=== PATIENT | male | born 1950 | race Caucasian/White ===

== ENCOUNTER 2023-05-01 08:11 | Inpatient (IN) | payer OTHER, MEDICARE ==
[2023-05-01] MEDS ORDERED: Bisacodyl 10 MG Supp RECTAL PRN (12:19)
[2023-05-01] MEDS ORDERED: 50% Dextrose in Water 50 ML Syringe IVPUSH PRN (12:25)
[2023-05-01] MEDS ORDERED: Glucagon,Human Recombinant 1 MG Vial IM PRN (12:25)
[2023-05-01] MEDS ORDERED: Lactulose Soln 10 GM/15 ML 30 ML UD Cup PO PRN (12:28)
[2023-05-01] MEDS ORDERED: hydrOXYzine HCl 25 MG Tab PO PRN (12:31)
[2023-05-01] MEDS: Insulin Lispro 100 Unit/ML 3 ML KwikPen SUBCUT SCH ×4 (13:16→18:00)
[2023-05-01] MEDS: Acetaminophen 500 MG Tab PO SCH ×3 (13:20→21:00)
[2023-05-01] MEDS: tiZANidine 4 MG Tab PO SCH ×2 (13:21→21:04)
[2023-05-01] MEDS: Gabapentin 300 MG Cap PO SCH ×2 (13:21→20:59)
[2023-05-01] MEDS ORDERED: Insulin Glargine,Human Rec. Analog 100 Units/ML 3 ML Pen SUBCUT SCH (15:00)
[2023-05-01] MEDS: Insulin Glargine,Human Rec. Analog 100 Units/ML 3 ML Pen SUBCUT SCH (15:41)
[2023-05-01] MEDS: Bacitracin Oint 28.35 GM Tube TOP SCH ×2 (18:41→21:16)
[2023-05-01] MEDS: Melatonin 3 MG Tab PO SCH (20:58)
[2023-05-01] MEDS: Metoprolol Tartrate 50 MG Tab PO SCH (20:58)
[2023-05-01] MEDS: Rosuvastatin 5 MG Tab PO SCH (20:58)
[2023-05-01] MEDS: Sennosides/Docusate Sodium 50-8.6 MG Tab PO SCH (20:59)
[2023-05-01] MEDS ORDERED: Non-Formulary Medication 1 Each (Fish Oil/Omega-3 Fatty Acids [Fish Oil 1,000 Mg] 1 GM Cap PO SCH (21:00)
[2023-05-01] MEDS: traZODone 50 MG Tab PO SCH (21:00)
[2023-05-01] MEDS: Diclofenac Sodium 1% Gel 100 GM Tube TOP SCH (21:03)
[2023-05-02] MEDS: oxyCODONE 5 MG Tab PO PRN ×2 (02:57→08:34)
[2023-05-02] MEDS ORDERED: Bisacodyl 10 MG Supp RECTAL ONE (07:41)
[2023-05-02] MEDS: Insulin Lispro 100 Unit/ML 3 ML KwikPen SUBCUT SCH ×6 (07:49→17:52)
[2023-05-02] MEDS ORDERED: Insulin Lispro 100 Unit/ML 3 ML KwikPen SUBCUT ONE (08:02)
[2023-05-02] MEDS: Lidocaine 4% 1 each Patch TOP SCH (09:26)
[2023-05-02] MEDS: Metoprolol Tartrate 50 MG Tab PO SCH ×2 (09:28→20:40)
[2023-05-02] MEDS: Enoxaparin 40 MG/0.4 ML Syringe SUBCUT SCH (09:29)
[2023-05-02] MEDS: Gabapentin 300 MG Cap PO SCH ×3 (09:30→20:41)
[2023-05-02] MEDS: Sennosides/Docusate Sodium 50-8.6 MG Tab PO SCH ×2 (09:30→20:42)
[2023-05-02] MEDS: Acetaminophen 500 MG Tab PO SCH ×4 (09:31→20:38)
[2023-05-02] MEDS: Cholecalciferol (Vitamin D3) 25 MCG Tab PO SCH (09:33)
[2023-05-02] MEDS: tiZANidine 4 MG Tab PO SCH ×3 (09:34→20:39)
[2023-05-02] MEDS: Diclofenac Sodium 1% Gel 100 GM Tube TOP SCH ×2 (09:34→20:42)
[2023-05-02] MEDS ORDERED: Insulin Glargine,Human Rec. Analog 100 Units/ML 3 ML Pen SUBCUT ONE (12:18)
[2023-05-02] MEDS: Polyethylene Glycol 3350 Powder 17 GM Packet PO SCH (14:40)
[2023-05-02] MEDS: BACITRACIN TOP SCH ×2 (15:11→20:39)
[2023-05-02] MEDS: Insulin Glargine,Human Rec. Analog 100 Units/ML 3 ML Pen SUBCUT SCH (15:12)
[2023-05-02] MEDS: Melatonin 3 MG Tab PO SCH (20:40)
[2023-05-02] MEDS: Rosuvastatin 5 MG Tab PO SCH (20:41)
[2023-05-02] MEDS: traZODone 50 MG Tab PO SCH (20:42)
[2023-05-03] MEDS: oxyCODONE 5 MG Tab PO PRN ×2 (05:17→08:50)
[2023-05-03] MEDS: Insulin Lispro 100 Unit/ML 3 ML KwikPen SUBCUT SCH ×6 (07:54→17:50)
[2023-05-03] MEDS: Lidocaine 4% 1 each Patch TOP SCH (08:37)
[2023-05-03] MEDS: BACITRACIN TOP SCH ×2 (08:38→21:04)
[2023-05-03] MEDS: Enoxaparin 40 MG/0.4 ML Syringe SUBCUT SCH (08:39)
[2023-05-03] MEDS: Metoprolol Tartrate 50 MG Tab PO SCH ×2 (08:39→21:02)
[2023-05-03] MEDS: Sennosides/Docusate Sodium 50-8.6 MG Tab PO SCH ×2 (08:40→21:03)
[2023-05-03] MEDS: Polyethylene Glycol 3350 Powder 17 GM Packet PO SCH (08:40)
[2023-05-03] MEDS: Acetaminophen 500 MG Tab PO SCH ×4 (08:40→21:03)
[2023-05-03] MEDS: Cholecalciferol (Vitamin D3) 25 MCG Tab PO SCH (08:41)
[2023-05-03] MEDS: tiZANidine 4 MG Tab PO SCH ×3 (08:42→21:02)
[2023-05-03] MEDS: Diclofenac Sodium 1% Gel 100 GM Tube TOP SCH ×2 (08:42→21:03)
[2023-05-03] MEDS: Gabapentin 300 MG Cap PO SCH ×3 (08:50→21:03)
[2023-05-03] MEDS: Insulin Glargine,Human Rec. Analog 100 Units/ML 3 ML Pen SUBCUT SCH (14:36)
[2023-05-03] MEDS: traZODone 50 MG Tab PO SCH (21:02)
[2023-05-03] MEDS: Melatonin 3 MG Tab PO SCH (21:02)
[2023-05-03] MEDS: Rosuvastatin 5 MG Tab PO SCH (21:03)
[2023-05-04] MEDS: oxyCODONE 5 MG Tab PO PRN ×2 (05:54→09:59)
[2023-05-04] MEDS: Insulin Lispro 100 Unit/ML 3 ML KwikPen SUBCUT SCH ×6 (08:57→18:16)
[2023-05-04] MEDS: BACITRACIN TOP SCH ×2 (09:47→20:26)
[2023-05-04] MEDS: Lidocaine 4% 1 each Patch TOP SCH (09:47)
[2023-05-04] MEDS: Cholecalciferol (Vitamin D3) 25 MCG Tab PO SCH (09:49)
[2023-05-04] MEDS: Acetaminophen 500 MG Tab PO SCH ×4 (09:50→20:23)
[2023-05-04] MEDS: Diclofenac Sodium 1% Gel 100 GM Tube TOP SCH ×2 (09:51→20:25)
[2023-05-04] MEDS: Sennosides/Docusate Sodium 50-8.6 MG Tab PO SCH ×2 (09:51→20:24)
[2023-05-04] MEDS: Enoxaparin 40 MG/0.4 ML Syringe SUBCUT SCH (09:51)
[2023-05-04] MEDS: Polyethylene Glycol 3350 Powder 17 GM Packet PO SCH (09:51)
[2023-05-04] MEDS: tiZANidine 4 MG Tab PO SCH ×3 (09:52→20:25)
[2023-05-04] MEDS: Gabapentin 300 MG Cap PO SCH ×3 (09:54→20:22)
[2023-05-04] MEDS: Metoprolol Tartrate 50 MG Tab PO SCH ×2 (09:54→20:28)
[2023-05-04] MEDS: Lactulose Soln 10 GM/15 ML 15 ML UD Cup PO PRN (14:39)
[2023-05-04] MEDS: Insulin Glargine,Human Rec. Analog 100 Units/ML 3 ML Pen SUBCUT SCH (15:40)
[2023-05-04] MEDS: Melatonin 3 MG Tab PO SCH (20:22)
[2023-05-04] MEDS: traZODone 50 MG Tab PO SCH (20:24)
[2023-05-04] MEDS: Rosuvastatin 5 MG Tab PO SCH (20:24)
[2023-05-05] MEDS: oxyCODONE 5 MG Tab PO PRN (06:29)
[2023-05-05] MEDS: Insulin Lispro 100 Unit/ML 3 ML KwikPen SUBCUT SCH ×6 (08:57→17:53)
[2023-05-05] MEDS: BACITRACIN TOP SCH ×2 (08:58→20:56)
[2023-05-05] MEDS: Lidocaine 4% 1 each Patch TOP SCH (08:58)
[2023-05-05] MEDS: Enoxaparin 40 MG/0.4 ML Syringe SUBCUT SCH (08:59)
[2023-05-05] MEDS: Acetaminophen 500 MG Tab PO SCH ×4 (08:59→20:52)
[2023-05-05] MEDS: tiZANidine 4 MG Tab PO SCH ×3 (08:59→20:59)
[2023-05-05] MEDS: Cholecalciferol (Vitamin D3) 25 MCG Tab PO SCH (08:59)
[2023-05-05] MEDS: Sennosides/Docusate Sodium 50-8.6 MG Tab PO SCH ×2 (08:59→20:58)
[2023-05-05] MEDS: Polyethylene Glycol 3350 Powder 17 GM Packet PO SCH (09:00)
[2023-05-05] MEDS: Diclofenac Sodium 1% Gel 100 GM Tube TOP SCH ×2 (09:00→20:54)
[2023-05-05] MEDS: Metoprolol Tartrate 50 MG Tab PO SCH ×2 (09:03→20:57)
[2023-05-05] MEDS: Gabapentin 300 MG Cap PO SCH ×3 (09:03→20:57)
[2023-05-05] MEDS: Insulin Glargine,Human Rec. Analog 100 Units/ML 3 ML Pen SUBCUT SCH (15:13)
[2023-05-05] MEDS: traZODone 50 MG Tab PO SCH (20:57)
[2023-05-05] MEDS: Rosuvastatin 5 MG Tab PO SCH (20:58)
[2023-05-05] MEDS: Melatonin 3 MG Tab PO SCH (20:59)
[2023-05-05] MEDS ORDERED: Bisacodyl 10 MG Supp RECTAL PRN (21:45)
[2023-05-06] MEDS: oxyCODONE 5 MG Tab PO PRN ×3 (00:31→11:46)
[2023-05-06] MEDS: Polyethylene Glycol 3350 Powder 17 GM Packet PO SCH (08:06)
[2023-05-06] MEDS: Lidocaine 4% 1 each Patch TOP SCH (08:06)
[2023-05-06] MEDS: BACITRACIN TOP SCH ×2 (08:06→20:39)
[2023-05-06] MEDS: Sennosides/Docusate Sodium 50-8.6 MG Tab PO SCH ×2 (08:07→21:29)
[2023-05-06] MEDS: Diclofenac Sodium 1% Gel 100 GM Tube TOP SCH ×2 (08:07→20:39)
[2023-05-06] MEDS: Cholecalciferol (Vitamin D3) 25 MCG Tab PO SCH (08:07)
[2023-05-06] MEDS: Enoxaparin 40 MG/0.4 ML Syringe SUBCUT SCH (08:09)
[2023-05-06] MEDS: Insulin Lispro 100 Unit/ML 3 ML KwikPen SUBCUT SCH ×6 (08:09→17:56)
[2023-05-06] MEDS: Gabapentin 300 MG Cap PO SCH ×3 (08:09→20:37)
[2023-05-06] MEDS: Metoprolol Tartrate 50 MG Tab PO SCH ×2 (08:10→21:29)
[2023-05-06] MEDS: tiZANidine 4 MG Tab PO SCH ×3 (08:10→20:37)
[2023-05-06] MEDS: Acetaminophen 500 MG Tab PO SCH ×4 (08:11→20:37)
[2023-05-06] MEDS: Insulin Glargine,Human Rec. Analog 100 Units/ML 3 ML Pen SUBCUT SCH (14:56)
[2023-05-06] MEDS: Rosuvastatin 5 MG Tab PO SCH (20:36)
[2023-05-06] MEDS: traZODone 50 MG Tab PO SCH (20:37)
[2023-05-06] MEDS: Melatonin 3 MG Tab PO SCH (20:37)
[2023-05-07] MEDS: oxyCODONE 5 MG Tab PO PRN ×3 (00:59→14:44)
[2023-05-07] MEDS: BACITRACIN TOP SCH ×2 (01:00→19:59)
[2023-05-07] MEDS: Metoprolol Tartrate 50 MG Tab PO SCH ×2 (08:25→20:00)
[2023-05-07] MEDS: tiZANidine 4 MG Tab PO SCH ×3 (08:25→20:00)
[2023-05-07] MEDS: Sennosides/Docusate Sodium 50-8.6 MG Tab PO SCH ×2 (08:26→20:01)
[2023-05-07] MEDS: Acetaminophen 500 MG Tab PO SCH ×4 (08:26→20:01)
[2023-05-07] MEDS: Cholecalciferol (Vitamin D3) 25 MCG Tab PO SCH (08:26)
[2023-05-07] MEDS: Enoxaparin 40 MG/0.4 ML Syringe SUBCUT SCH (08:30)
[2023-05-07] MEDS: Polyethylene Glycol 3350 Powder 17 GM Packet PO SCH (08:30)
[2023-05-07] MEDS: Insulin Lispro 100 Unit/ML 3 ML KwikPen SUBCUT SCH ×6 (08:33→18:42)
[2023-05-07] MEDS: Gabapentin 300 MG Cap PO SCH ×3 (08:41→20:12)
[2023-05-07] MEDS: Diclofenac Sodium 1% Gel 100 GM Tube TOP SCH ×2 (08:43→20:05)
[2023-05-07] MEDS: Lidocaine 4% 1 each Patch TOP SCH (08:45)
[2023-05-07] MEDS ORDERED: Insulin Glargine,Human Rec. Analog 100 Units/ML 3 ML Pen SUBCUT ONE (12:18)
[2023-05-07] MEDS ORDERED: Insulin Lispro 100 Unit/ML 3 ML KwikPen SUBCUT ONE (12:18)
[2023-05-07] MEDS: Insulin Glargine,Human Rec. Analog 100 Units/ML 3 ML Pen SUBCUT SCH (14:39)
[2023-05-07] MEDS: Lactulose Soln 10 GM/15 ML 15 ML UD Cup PO PRN (18:52)
[2023-05-07] MEDS: Rosuvastatin 5 MG Tab PO SCH (20:00)
[2023-05-07] MEDS: Melatonin 3 MG Tab PO SCH (20:00)
[2023-05-07] MEDS: traZODone 50 MG Tab PO SCH (20:04)
[2023-05-08] MEDS: oxyCODONE 5 MG Tab PO PRN ×3 (01:43→16:59)
[2023-05-08] MEDS: Lidocaine 4% 1 each Patch TOP SCH (08:18)
[2023-05-08] MEDS: BACITRACIN TOP SCH ×2 (08:20→21:12)
[2023-05-08] MEDS: tiZANidine 4 MG Tab PO SCH ×3 (08:21→21:10)
[2023-05-08] MEDS: Metoprolol Tartrate 50 MG Tab PO SCH ×2 (08:21→21:07)
[2023-05-08] MEDS: Sennosides/Docusate Sodium 50-8.6 MG Tab PO SCH ×2 (08:22→21:08)
[2023-05-08] MEDS: Acetaminophen 500 MG Tab PO SCH ×4 (08:23→21:08)
[2023-05-08] MEDS: Cholecalciferol (Vitamin D3) 25 MCG Tab PO SCH (08:23)
[2023-05-08] MEDS: Diclofenac Sodium 1% Gel 100 GM Tube TOP SCH ×2 (08:24→21:13)
[2023-05-08] MEDS: Polyethylene Glycol 3350 Powder 17 GM Packet PO SCH (08:25)
[2023-05-08] MEDS: Enoxaparin 40 MG/0.4 ML Syringe SUBCUT SCH (08:25)
[2023-05-08] MEDS: Insulin Lispro 100 Unit/ML 3 ML KwikPen SUBCUT SCH ×6 (08:28→18:58)
[2023-05-08] MEDS: Lactulose Soln 10 GM/15 ML 15 ML UD Cup PO PRN (08:31)
[2023-05-08] MEDS: Gabapentin 300 MG Cap PO SCH ×3 (08:31→21:07)
[2023-05-08] MEDS: Insulin Glargine,Human Rec. Analog 100 Units/ML 3 ML Pen SUBCUT SCH (14:40)
[2023-05-08] MEDS: traZODone 50 MG Tab PO SCH (21:07)
[2023-05-08] MEDS: Rosuvastatin 5 MG Tab PO SCH (21:09)
[2023-05-08] MEDS: Melatonin 3 MG Tab PO SCH (21:09)
[2023-05-09] MEDS: oxyCODONE 5 MG Tab PO PRN (05:35)
[2023-05-09] MEDS: Insulin Lispro 100 Unit/ML 3 ML KwikPen SUBCUT SCH ×6 (08:18→18:09)
[2023-05-09] MEDS: Lidocaine 4% 1 each Patch TOP SCH (08:19)
[2023-05-09] MEDS: Gabapentin 300 MG Cap PO SCH ×3 (08:19→21:16)
[2023-05-09] MEDS: BACITRACIN TOP SCH ×2 (08:20→21:14)
[2023-05-09] MEDS: Polyethylene Glycol 3350 Powder 17 GM Packet PO SCH (08:20)
[2023-05-09] MEDS: Sennosides/Docusate Sodium 50-8.6 MG Tab PO SCH ×2 (08:21→21:17)
[2023-05-09] MEDS: Acetaminophen 500 MG Tab PO SCH ×4 (08:21→21:17)
[2023-05-09] MEDS: Enoxaparin 40 MG/0.4 ML Syringe SUBCUT SCH (08:21)
[2023-05-09] MEDS: Diclofenac Sodium 1% Gel 100 GM Tube TOP SCH ×2 (08:22→21:19)
[2023-05-09] MEDS: Cholecalciferol (Vitamin D3) 25 MCG Tab PO SCH (08:22)
[2023-05-09] MEDS: tiZANidine 4 MG Tab PO SCH ×3 (08:22→21:19)
[2023-05-09] MEDS: Metoprolol Tartrate 50 MG Tab PO SCH ×2 (08:25→21:15)
[2023-05-09] MEDS: Insulin Glargine,Human Rec. Analog 100 Units/ML 3 ML Pen SUBCUT SCH (15:05)
[2023-05-09] MEDS: Rosuvastatin 5 MG Tab PO SCH (21:16)
[2023-05-09] MEDS: Melatonin 3 MG Tab PO SCH (21:16)
[2023-05-09] MEDS: traZODone 50 MG Tab PO SCH (21:17)
[2023-05-10] MEDS: Lactulose Soln 10 GM/15 ML 15 ML UD Cup PO PRN (04:59)
[2023-05-10] MEDS: oxyCODONE 5 MG Tab PO PRN ×3 (04:59→17:49)
[2023-05-10] MEDS: Polyethylene Glycol 3350 Powder 17 GM Packet PO SCH (09:37)
[2023-05-10] MEDS: tiZANidine 4 MG Tab PO SCH ×3 (09:39→20:51)
[2023-05-10] MEDS: Metoprolol Tartrate 50 MG Tab PO SCH ×2 (09:39→21:17)
[2023-05-10] MEDS: Cholecalciferol (Vitamin D3) 25 MCG Tab PO SCH (09:39)
[2023-05-10] MEDS: Sennosides/Docusate Sodium 50-8.6 MG Tab PO SCH ×2 (09:39→20:49)
[2023-05-10] MEDS: Enoxaparin 40 MG/0.4 ML Syringe SUBCUT SCH (09:40)
[2023-05-10] MEDS: Lidocaine 4% 1 each Patch TOP SCH (09:41)
[2023-05-10] MEDS: Insulin Lispro 100 Unit/ML 3 ML KwikPen SUBCUT SCH ×6 (09:43→18:02)
[2023-05-10] MEDS: Gabapentin 300 MG Cap PO SCH ×3 (09:48→20:48)
[2023-05-10] MEDS: Acetaminophen 500 MG Tab PO SCH ×4 (09:50→20:49)
[2023-05-10] MEDS: BACITRACIN TOP SCH ×2 (09:51→20:46)
[2023-05-10] MEDS: Diclofenac Sodium 1% Gel 100 GM Tube TOP SCH ×2 (09:52→20:51)
[2023-05-10] MEDS: Insulin Glargine,Human Rec. Analog 100 Units/ML 3 ML Pen SUBCUT SCH (15:00)
[2023-05-10] MEDS: Melatonin 3 MG Tab PO SCH (20:49)
[2023-05-10] MEDS: traZODone 50 MG Tab PO SCH (20:49)
[2023-05-10] MEDS: Rosuvastatin 5 MG Tab PO SCH (20:49)
[2023-05-11] MEDS: oxyCODONE 5 MG Tab PO PRN ×4 (00:04→21:14)
[2023-05-11] MEDS: Insulin Lispro 100 Unit/ML 3 ML KwikPen SUBCUT SCH ×6 (09:01→17:50)
[2023-05-11] MEDS: Cholecalciferol (Vitamin D3) 25 MCG Tab PO SCH (09:10)
[2023-05-11] MEDS: Sennosides/Docusate Sodium 50-8.6 MG Tab PO SCH ×2 (09:10→21:10)
[2023-05-11] MEDS: tiZANidine 4 MG Tab PO SCH ×3 (09:10→21:13)
[2023-05-11] MEDS: Metoprolol Tartrate 50 MG Tab PO SCH ×2 (09:12→21:08)
[2023-05-11] MEDS: Acetaminophen 500 MG Tab PO SCH ×4 (09:12→21:10)
[2023-05-11] MEDS: Polyethylene Glycol 3350 Powder 17 GM Packet PO SCH (09:13)
[2023-05-11] MEDS: BACITRACIN TOP SCH ×2 (09:13→21:08)
[2023-05-11] MEDS: Lidocaine 4% 1 each Patch TOP SCH (09:14)
[2023-05-11] MEDS: Diclofenac Sodium 1% Gel 100 GM Tube TOP SCH ×2 (09:14→21:13)
[2023-05-11] MEDS: Enoxaparin 40 MG/0.4 ML Syringe SUBCUT SCH (09:22)
[2023-05-11] MEDS: Gabapentin 300 MG Cap PO SCH ×3 (09:22→21:09)
[2023-05-11] MEDS: Insulin Glargine,Human Rec. Analog 100 Units/ML 3 ML Pen SUBCUT SCH (15:38)
[2023-05-11] MEDS: Rosuvastatin 5 MG Tab PO SCH (21:08)
[2023-05-11] MEDS: Melatonin 3 MG Tab PO SCH (21:09)
[2023-05-11] MEDS: traZODone 50 MG Tab PO SCH (21:10)
[2023-05-12] MEDS: oxyCODONE 5 MG Tab PO PRN ×3 (03:22→21:20)
[2023-05-12] MEDS: Insulin Lispro 100 Unit/ML 3 ML KwikPen SUBCUT SCH ×6 (07:53→17:54)
[2023-05-12] MEDS: BACITRACIN TOP SCH ×2 (09:31→21:24)
[2023-05-12] MEDS: Diclofenac Sodium 1% Gel 100 GM Tube TOP SCH ×2 (09:32→21:21)
[2023-05-12] MEDS: Enoxaparin 40 MG/0.4 ML Syringe SUBCUT SCH (09:43)
[2023-05-12] MEDS: Lidocaine 4% 1 each Patch TOP SCH (09:43)
[2023-05-12] MEDS: Metoprolol Tartrate 50 MG Tab PO SCH ×2 (09:44→21:24)
[2023-05-12] MEDS: Sennosides/Docusate Sodium 50-8.6 MG Tab PO SCH ×2 (09:44→21:23)
[2023-05-12] MEDS: Polyethylene Glycol 3350 Powder 17 GM Packet PO SCH (09:44)
[2023-05-12] MEDS: Cholecalciferol (Vitamin D3) 25 MCG Tab PO SCH (09:45)
[2023-05-12] MEDS: Acetaminophen 500 MG Tab PO SCH ×4 (09:45→21:22)
[2023-05-12] MEDS: Gabapentin 300 MG Cap PO SCH ×3 (09:53→21:19)
[2023-05-12] MEDS: tiZANidine 4 MG Tab PO SCH ×3 (09:54→22:03)
[2023-05-12] MEDS: Insulin Glargine,Human Rec. Analog 100 Units/ML 3 ML Pen SUBCUT SCH (15:22)
[2023-05-12] MEDS: traZODone 50 MG Tab PO SCH (21:23)
[2023-05-12] MEDS: Rosuvastatin 5 MG Tab PO SCH (21:24)
[2023-05-12] MEDS: Melatonin 3 MG Tab PO SCH (21:25)
[2023-05-13] MEDS: oxyCODONE 5 MG Tab PO PRN ×2 (05:17→20:43)
[2023-05-13] MEDS: Insulin Lispro 100 Unit/ML 3 ML KwikPen SUBCUT SCH ×6 (06:37→17:57)
[2023-05-13] MEDS: Lidocaine 4% 1 each Patch TOP SCH (09:46)
[2023-05-13] MEDS: BACITRACIN TOP SCH ×2 (09:46→20:50)
[2023-05-13] MEDS: Enoxaparin 40 MG/0.4 ML Syringe SUBCUT SCH (09:48)
[2023-05-13] MEDS: Polyethylene Glycol 3350 Powder 17 GM Packet PO SCH (09:48)
[2023-05-13] MEDS: Sennosides/Docusate Sodium 50-8.6 MG Tab PO SCH ×2 (09:48→20:55)
[2023-05-13] MEDS: Metoprolol Tartrate 50 MG Tab PO SCH ×2 (09:48→20:52)
[2023-05-13] MEDS: Acetaminophen 500 MG Tab PO SCH ×4 (09:49→20:55)
[2023-05-13] MEDS: Gabapentin 300 MG Cap PO SCH ×3 (09:49→20:53)
[2023-05-13] MEDS: Cholecalciferol (Vitamin D3) 25 MCG Tab PO SCH (09:50)
[2023-05-13] MEDS: Diclofenac Sodium 1% Gel 100 GM Tube TOP SCH ×2 (09:51→20:56)
[2023-05-13] MEDS: tiZANidine 4 MG Tab PO SCH ×3 (09:51→20:57)
[2023-05-13] MEDS: Insulin Glargine,Human Rec. Analog 100 Units/ML 3 ML Pen SUBCUT SCH (16:43)
[2023-05-13] MEDS ORDERED: Insulin Glargine,Human Rec. Analog 100 Units/ML 3 ML Pen SUBCUT ONE (16:45)
[2023-05-13] MEDS: Rosuvastatin 5 MG Tab PO SCH (20:52)
[2023-05-13] MEDS: Melatonin 3 MG Tab PO SCH (20:53)
[2023-05-13] MEDS: traZODone 50 MG Tab PO SCH (20:55)
[2023-05-14] MEDS: oxyCODONE 5 MG Tab PO PRN ×4 (03:31→21:41)
[2023-05-14] MEDS: Insulin Lispro 100 Unit/ML 3 ML KwikPen SUBCUT SCH ×6 (06:57→17:49)
[2023-05-14] MEDS: Acetaminophen 500 MG Tab PO SCH ×4 (08:02→21:24)
[2023-05-14] MEDS: Metoprolol Tartrate 50 MG Tab PO SCH ×2 (08:02→21:31)
[2023-05-14] MEDS: Diclofenac Sodium 1% Gel 100 GM Tube TOP SCH (08:03)
[2023-05-14] MEDS: Sennosides/Docusate Sodium 50-8.6 MG Tab PO SCH ×2 (08:04→21:24)
[2023-05-14] MEDS: Cholecalciferol (Vitamin D3) 25 MCG Tab PO SCH (08:04)
[2023-05-14] MEDS: tiZANidine 4 MG Tab PO SCH ×3 (08:04→21:29)
[2023-05-14] MEDS: Polyethylene Glycol 3350 Powder 17 GM Packet PO SCH (08:04)
[2023-05-14] MEDS: Enoxaparin 40 MG/0.4 ML Syringe SUBCUT SCH (08:05)
[2023-05-14] MEDS: BACITRACIN TOP SCH ×2 (08:06→21:21)
[2023-05-14] MEDS: Lidocaine 4% 1 each Patch TOP SCH (08:06)
[2023-05-14] MEDS: Gabapentin 300 MG Cap PO SCH ×3 (08:17→21:41)
[2023-05-14] MEDS: Insulin Glargine,Human Rec. Analog 100 Units/ML 3 ML Pen SUBCUT SCH (14:36)
[2023-05-14] MEDS: Melatonin 3 MG Tab PO SCH (21:22)
[2023-05-14] MEDS: Rosuvastatin 5 MG Tab PO SCH (21:22)
[2023-05-14] MEDS: traZODone 50 MG Tab PO SCH (21:24)
[2023-05-15] MEDS: Diclofenac Sodium 1% Gel 100 GM Tube TOP SCH ×2 (00:52→08:13)
[2023-05-15] MEDS: oxyCODONE 5 MG Tab PO PRN ×2 (03:36→07:48)
[2023-05-15] MEDS: Insulin Lispro 100 Unit/ML 3 ML KwikPen SUBCUT SCH ×4 (07:49→11:49)
[2023-05-15] MEDS: Lidocaine 4% 1 each Patch TOP SCH (08:09)
[2023-05-15] MEDS: BACITRACIN TOP SCH (08:09)
[2023-05-15] MEDS: Polyethylene Glycol 3350 Powder 17 GM Packet PO SCH (08:10)
[2023-05-15] MEDS: Enoxaparin 40 MG/0.4 ML Syringe SUBCUT SCH (08:10)
[2023-05-15] MEDS: Metoprolol Tartrate 50 MG Tab PO SCH (08:10)
[2023-05-15] MEDS: Acetaminophen 500 MG Tab PO SCH ×2 (08:11→14:02)
[2023-05-15] MEDS: tiZANidine 4 MG Tab PO SCH (08:12)
[2023-05-15] MEDS: Sennosides/Docusate Sodium 50-8.6 MG Tab PO SCH (08:12)
[2023-05-15] MEDS: Cholecalciferol (Vitamin D3) 25 MCG Tab PO SCH (08:12)
[2023-05-15] MEDS: Gabapentin 300 MG Cap PO SCH ×2 (08:15→13:58)
[2023-05-15] MEDS ORDERED: Aluminum Hydroxide/Magnesium Hydroxide Susp 30 ML Cup PO PRN (10:47)
[2023-05-15] MEDS: Insulin Glargine,Human Rec. Analog 100 Units/ML 3 ML Pen SUBCUT SCH (13:58)
[2023-05-15 15:51] VITALS: BP 156/77; PULSE 89
== END 2023-05-15 14:08 | disposition home health service (06) | DRG 560 ==
LOC: FB.MS 11:26
PROVIDERS: ADMIT Student in an Organized Health Care Education/Training Program; ATTEND Family Medicine
DX: Z47.89 Encounter for other orthopedic aftercare (principal); J94.2 Hemothorax; L03.115 Cellulitis of right lower limb; S22.41XD Multiple fractures of ribs, right side, subsequent encounter for fracture with routine healing; S80.11XA Contusion of right lower leg, initial encounter; S30.1XXA Contusion of abdominal wall, initial encounter; S50.311A Abrasion of right elbow, initial encounter; S32.591D Other specified fracture of right pubis, subsequent encounter for fracture with routine healing; S72.321 Displaced transverse fracture of shaft of right femur; E11.65 Type 2 diabetes mellitus with hyperglycemia; J98.2 Interstitial emphysema; L98.491 Non-pressure chronic ulcer of skin of other sites limited to breakdown of skin; L30.4 Erythema intertrigo; Z79.4 Long term (current) use of insulin; Z99.81 Dependence on supplemental oxygen; Z98.890 Other specified postprocedural states; Z79.899 Other long term (current) drug therapy; V89.2XXD Person injured in unspecified motor-vehicle accident, traffic, subsequent encounter
CPT/HCPCS: 71046; 82947; 94150; 94669; 97110-GO; 97110-GP; 97161-GP; 97165-GO; 97530-GO; 97530-GP; 97535-GO; 99305; 99309; 99315; A9270-GY; J1650; J1815; J1815-GY